=== PATIENT | female | born 1960 | race Caucasian/White ===

== ENCOUNTER 2024-07-22 16:56 | Emergency (ER) | payer MEDICAID, OTHER ==
[~2024-07-22] VITALS: Ht 152.4 cm; Wt 59.0 kg
[2024-07-22 17:17] VITALS: BP 137/63; O2SAT 96
[2024-07-22 18:00] LABS: HEMATOCRIT. 32.3 % (36.0-48.0); HEMOGLOBIN. 9.8 g/dL (12.0-16.0); MEAN CORPUSCULAR HEMOGLOBIN 22.1 pg (28.0-32.0); MEAN CORPUSCULAR HGB CONC 30.5 g/dL (31.0-37.0); MEAN CORPUSCULAR VOLUME 72.3 fL (81.0-99.0); PLATELET 281 x1000/uL (130-400); RED BLOOD CELL COUNT 4.46 mill/uL (4.2-5.4); RED CELL DISTRIBUTION WIDTH 23.4 % (11.6-14.6); WHITE BLOOD COUNT 7.3 x1000/uL (4.5-11.0)
[2024-07-22 18:02] LABS: DIFFERENTIAL COMMENT 1
[2024-07-22 18:05] LABS: CHLORIDE 109 mEq/L (98-107); POTASSIUM 4.1 mEq/L (3.5-5.1); SODIUM 144 mEq/L (136-145)
[2024-07-22 18:06] LABS: CALCIUM 9.9 mg/dL (8.7-10.4); CARBON DIOXIDE 25 mEq/L (21-32)
[2024-07-22 18:11] LABS: CREATININE 0.9 mg/dL (0.6-1.0); GLUCOSE 216 mg/dL (70-105); UREA NITROGEN BLOOD 12 mg/dL (9-23)
[2024-07-22] MEDS ORDERED: ONDANSETRON HCL 4MG/2ML INJ IV STA (18:19)
[2024-07-22] MEDS ORDERED: MORPHINE SULFATE 4 MG/ML INJ (FOR IV/IM USE) IV STA (18:19)
[2024-07-22 19:18] LABS: ANISOCYTOSIS 2+; HYPOCHROMASIA 1+; MICROCYTOSIS 2+; PLATELET ESTIMATE NORMAL
[2024-07-22 19:50] LABS: ALANINE AMINOTRANSFERASE 10 IU/L (10-49); ALBUMIN 4.3 g/dL (3.2-4.8); ASPARTATE AMINOTRANSFERASE 18 IU/L (<34); BILIRUBIN TOTAL 0.3 mg/dL (0.1-1.0); PROTEIN TOTAL 7.2 g/dL (6.0-8.3)
[2024-07-22 20:02] LABS: BILIRUBIN DIRECT < 0.1 mg/dL (<=3.0)
[2024-07-22] MEDS ORDERED: PANTOPRAZOLE SODIUM 40 MG/VIAL IV ONE (20:15)
[2024-07-22] MEDS ORDERED: MAGNESIUM/ALUMINUM HYDROXIDE/SIMETHICONE 30ML UDC PO ONE (21:00)
[2024-07-22 21:41] LABS: CLARITY URINE CLEAR (CLEAR); COLOR URINE YELLOW (YELLOW); GLUCOSE URINE 2+ (NEGATIVE); KETONES URINE TRACE (NEGATIVE); LEUKOCYTE ESTERASE URINE NEGATIVE (NEGATIVE); NITRITE URINE NEGATIVE (NEGATIVE); OCCULT BLOOD URINE NEGATIVE (NEGATIVE); PH URINE 5.5 (4.5-8.0); PROTEIN URINE NEGATIVE (NEGATIVE); SPECIFIC GRAVITY URINE 1.035 (1.005-1.030)
[2024-07-22 22:15] LABS: BACTERIA URINE TRACE; RBC URINE 0-2 /hpf (0-2); SQUAMOUS EPITHELIAL CELL URINE FEW /lpf (RARE/1+); WBC URINE 0-2 /hpf (0-2)
[2024-07-22] MEDS ORDERED: FERR324T4 MT (22:37)
[2024-07-22] MEDS ORDERED: LIDO700A15 TP (22:37)
[2024-07-22] MEDS ORDERED: PANT40TA51 MT (22:37)
[2024-07-22] MEDS ORDERED: METH-653 MT (22:37)
[2024-07-22] MEDS ORDERED: TOPUD PO (22:37)
[2024-07-22] MEDS ORDERED: ASCO500C18 MT (22:37)
[2024-07-22] MEDS ORDERED: MAG-55 MT (22:37)
[2024-07-22] MEDS: SODIUM CHLORIDE 0.9% 1,000 ML IV ONE (22:40)
[2024-07-22] MEDS: MAGNESIUM/ALUMINUM HYDROXIDE/SIMETHICONE 30ML UDC PO SCH (23:15)
[2024-07-22] MEDS: PANTOPRAZOLE SODIUM 40 MG/VIAL IV SCH (23:15)
[2024-07-22] MEDS ORDERED: MORPHINE SULFATE 4 MG/ML INJ (FOR IV/IM USE) IV SCH (23:15)
[2024-07-22] MEDS: ONDANSETRON HCL 4MG/2ML INJ IV SCH (23:15)
[2024-07-22 23:17] VITALS: PULSE 100; RESP 18; TEMP 37.05852; O2SAT 96
== END 2024-07-22 23:17 | disposition home or self-care (01) ==
LOC: ER 16:56
DX: D64.9 Anemia, unspecified (principal); R10.13 Epigastric pain; M54.50 Low back pain, unspecified; E11.9 Type 2 diabetes mellitus without complications; Z79.899 Other long term (current) drug therapy
CPT/HCPCS: 80076; 80048; 81003; 83690; 85025; 36415; 96361; 96374; 96375; 99284; J2405; J2470; J7030; Z7610 ×2